=== PATIENT | female | born 1990 | race American Indian/Alaskan Native ===

== ENCOUNTER 2018-10-28 09:21 | Day surgery (SDC) | payer MEDICAID ==
--- NOTE | 2018-10-28 09:08 | Short Stay Summary ---
Short Stay Documentation Date of service: 10/28/18 Narrative H&P: Patient is a 28 year old who presents for D&C for incomplete . Patient had lingering hcg levels for more than 3 weeks therefore the decision was made to proceed with D&C. - History Past Medical History: No medical history Past Surgical History: No surgical history Social history: single - Allergies and Medications Current Medications: Allergies sulfamethoxazole [From Bactrim] Allergy (Verified 10/21/18 16:57) Itching trimethoprim [From Bactrim] Allergy (Verified 10/21/18 16:57) Itching Home Medications Medication Instructions Recorded Confirmed Last Taken Type No Known Home Medications [No 10/21/18 10/21/18 Unknown History Reported Home Medications] - Physical exam General appearance: no acute distress Integumentary: no rash, no growths HEENT: Atraumatic, PERRLA, EOMI Lungs: Clear to auscultation, Normal air movement Breasts: deferred Heart: Regular rate, Normal S1, Normal S2 Gastrointestinal: normal, normoactive bowel sounds Female Genitourinary: deferred Rectal Exam: deferred Extremities: No edema - Brief post op/procedure progress note Date of procedure: 10/28/18 Pre-op diagnosis: Incomplete Post-op diagnosis: same Procedure: D&E Anesthesia: GETA Findings: moderate amount of tissue present in uterus Surgeon: RAJI BRAGG Estimated blood loss: 50-100ml Pathology: list (products of conception) Condition: stable - Hospital course Hospital course: unremarkable - Disposition Condition at discharge: Good Disposition: DC-01 TO HOME OR SELFCARE Short Stay Discharge Plan Activity: advance as tolerated Weight Bearing Status: Weight Bear as Tolerated Diet: regular Wound: keep clean and dry Follow up with: RAJI BRAGG MD [Primary Care Provider] - 14 Days Prescriptions: HYDROcodone/ACETAMINOPHEN [[place] 5-325 Tablet] 1 each PO Q6H #15 tablet Ibuprofen [Motrin] 800 mg PO Q8HR PRN #30 tablet PRN Reason: Pain, Mild (1-3)
[~2018-10-28 09:21] MED LIST: LACTATED RINGERS 1,000 ML IV SCH
[2018-10-28] MEDS ORDERED: SUBLIMAZE IV PRN (10:06)
[2018-10-28] MEDS ORDERED: ZOFRAN IV PRN (10:06)
--- NOTE | 2018-10-28 10:06 | Anesthesia Day of Surgery ---
Anesthesia Day of Surgery - Day of Surgery Patient Examined: Yes Patient H&P Reviewed: Yes Patient is NPO: Yes
--- NOTE | 2018-10-28 10:06 | Anesthesia Consultation ---
Anesthesia Consult and Med Hx Date of service: 10/28/18 - Airway Anesthetic Teeth Evaluation: Chipped ROM Head & Neck: Adequate Mental/Hyoid Distance: Adequate Mallampati Class: Class I Intubation Access Assessment: Good - Pre-Operative Health Status ASA Pre-Surgery Classification: ASA2 Proposed Anesthetic Plan: General - Central Nervous System Hx Psychiatric Problems: No - Hematic Hx Sickle Cell Disease: Yes (Trait only; some SSA disease symptoms-leg pain when cold) - Other Systems Hx Alcohol Use: Yes (Occas) Hx Cancer: No
[2018-10-28] MEDS ORDERED: DIPRIVAN 10 MG/ML IV ONE (10:30)
[2018-10-28] MEDS ORDERED: SUBLIMAZE ONE ×2 (10:30)
[2018-10-28] MEDS ORDERED: ZEMURON IV ONE (10:34)
[2018-10-28] MEDS ORDERED: VERSED IV NR (11:00)
[2018-10-28] MEDS ORDERED: ROBINUL ONE (11:34)
[2018-10-28] MEDS ORDERED: NEO SYNEPHRINE/NS Syringe(OR USE) IV ONE (11:48)
[2018-10-28] MEDS ORDERED: SILVER NITRATE TP ONE ×2 (12:02→12:18)
[2018-10-28] MEDS ORDERED: NACL 0.9% IR ONE (12:18)
--- NOTE | 2018-10-28 12:25 | Operative Report ---
Operative Report Operative Report: Preoperative diagnoses: Incomplete Postoperative diagnosis: Same Procedure: D and E Surgeon: Fiordaliza Stevens M.D. Anesthesia: MAC EBL: Minimal Urine output: 300 mL clear Complications: None Specimens: Products of conception Procedure: Patient was taken to the OR with IV running and in place. She will probably identified as herself. She was given adequate anesthesia. She was then placed in the dorsal lithotomy position and prepped and draped in normal sterile fashion. Attention was turned to the patient's vagina. Her bladder was then drained of approximately 100 mL of clear yellow urine. A bivalve speculum was placed the patient's vagina. Cervix was visualized and grasped with a singl e-tooth tenaculum. The cervix was then gently dilated up to approximately 29 mm. Following this, a #7 suction curette was inserted into the patient's uterus at the level of the fundus. It was then attached to the suction machine and the curettage was performed removing products of conception. At one point the curet was removed and a large banjo curet was introduced into the uterus to further r etrieve any additional products. Following this the suction curette was reintroduced and more tissue was obtained. It was excellent hemostasis noted at the end of this portion of the procedure. At this point all instruments were removed from the patient's vagina. She was then awakened and taken to recovery in stable condition. She tolerated the procedure well
[2018-10-28] MEDS ORDERED: NORCO 5/325 PO ONE (13:30)
[2018-10-28 13:48] VITALS: BP 121/78
== END 2018-10-28 14:09 | disposition home or self-care (01) ==
LOC: OR 09:21
PROVIDERS: ATTEND Obstetrics & Gynecology
DX: O03.4 Incomplete spontaneous abortion without complication (principal); O02.0 Blighted ovum and nonhydatidiform mole; Z88.8 Allergy status to other drugs, medicaments and biological substances; Z79.899 Other long term (current) drug therapy; Z72.89 Other problems related to lifestyle; Z98.890 Other specified postprocedural states
CPT/HCPCS: 59812; 86900; 86901; 88305; J2250; J2370; J2704; J3010; J7120

== ENCOUNTER 2019-03-22 17:29 | Emergency (ER) | payer MEDICAID ==
--- NOTE | 2019-03-22 17:44 | Event Note ---
ED Screening Note Date of service: 03/22/19 Time: 17:39 ED Screening Note: 28 y/o female comes in for vaginal bleeding. Had miscarriage in Aug. D/C in September and got preg January 2019. This initial assessment/diagnostic orders/clinical plan/treatment(s) is/are subject to change based on patients health status, clinical progression and re- assessment by fellow clinical providers in the ED. Further treatment and workup at subsequent clinical providers discretion. Patient/guardian urged not to elope from the ED as their condition may be serious if not clinically assessed and managed. Initial orders include:
[2019-03-22 17:50] VITALS: BP 148/78
[2019-03-22 18:18] LABS: Basophils # (Auto) 0.1 K/mm3 (0.0-0.1); Basophils % (Auto) 0.7 % (0.0-1.8); Eosinophils # (Auto) 0.3 K/mm3 (0.0-0.4); Eosinophils % (Auto) 2.9 % (0.0-4.3); Hematocrit 37.7 % (30.3-42.9); Hemoglobin 12.9 gm/dl (10.1-14.3); Lymphocytes # (Auto) 3.5 K/mm3 (1.2-5.4); Lymphocytes % (Auto) 34.4 % (13.4-35.0); Mean Corpuscular HGB Conc 34 % (30-34); Mean Corpuscular Volume 88 fl (79-97); Monocytes # (Auto) 0.7 K/mm3 (0.0-0.8); Monocytes % (Auto) 7.3 % (0.0-7.3); Platelet Count 252 K/mm3 (140-440); Red Blood Count 4.28 M/mm3 (3.65-5.03); Red Cell Distribution Width 14.9 % (13.2-15.2)
[2019-03-22 18:30] LABS: Bilirubin,Urine NEG (Negative); Blood,Urine MOD (Negative); Color,Urine Straw (Yellow); Mucus,Urine FEW /HPF; Protein,Urine <15 mg/dL mg/dL (Negative); Urobilinogen,Urine < 2.0 mg/dL (<2.0); WBC,Urine < 1.0 /HPF (0.0-6.0)
--- NOTE | 2019-03-22 22:01 | Ultrasound Report ---
PROCEDURE: US OB <= 14 WEEKS FETUS TECHNIQUE: Ultrasound obstetrical transabdominal HISTORY: preg with vag bleeding COMPARISONS: FINDINGS: There is small amount of fluid with a somewhat saclike appearance seen within the endometrium. Some i nternal echoes are seen. No pole or yolk sac identified. No myometrial abnormality seen Right ovary is 1.8 x 1.4 x 2.4 cm. Left ovary is 2.5 x 1.4 x 2.3 cm. Ovaries demonstrate normal sonog raphic appearance IMPRESSION: Some fluid and a small saclike structure seen centrally within the uterus which contains some mobile echogenic material. There is concern for spontaneous AB. Very early RUP cannot be occluded. Continued follow-up recommended. This document is electronically signed by Mitch Eisenberg MD., March 22 2019 09:59:56 PM ET
--- NOTE | 2019-03-22 22:10 | Emergency Department Report ---
ED HPI - General Chief complaint: Vaginal Bleeding Stated complaint: VAG BLEED Time Seen by Provider: 03/22/19 21:03 Source: patient Mode of arrival: Ambulatory Limitations: No Limitations - History of Present Illness Initial comments: Patient is a 28-year-old female who presents emergency Department with complaints of vaginal spotting that began last night. She denies any abdominal pain. She does not report any vomiting, diarrhea, fever, urinary symptoms, vaginal discharge. She states she feels like she has constipated but had a bowel movement today. She states she has been eating a lot more and feels like she hasn't had enough of a bowel movement. Her last menstrual period was February 06. she states he took at home test which was positive. She states based on her last menstrual period she is 6 weeks . She states she has an appointment with Dr. Stevens [facility] at [facility] but they will not see her until 8 weeks. She has not been taking a vitamin. She states that in August she had a miscarriage and had a D&C on October 26. She denies any past medical history she states she has an allergy to Bactrim. - Related Data Previous Rx's Medication Instructions Recorded Last Taken Type HYDROcodone/ACETAMINOPHEN [[place] 1 each PO Q6H #15 tablet 10/28/18 Unknown Rx 5-325 Tablet] Ibuprofen [Motrin] 800 mg PO Q8HR PRN #30 tablet 10/28/18 Unknown Rx Allergies Allergy/AdvReac Type Severity Reaction Status Date / Time sulfamethoxazole Allergy Itching Verified 03/22/19 17:30 [From Bactrim] trimethoprim [From Bactrim] Allergy Itching Verified 03/22/19 17:30 ED Review of Systems ROS: Stated complaint: VAG BLEED Other details as noted in HPI Comment: All other systems reviewed and negative ED Past Medical Hx - Past Medical History Previous Medical History?: Yes Hx Sickle Cell Disease: Yes (Trait only; some SSA disease symptoms-leg pain when cold) - Surgical History Past Surgical History?: Yes Additional Surgical History: D&C - Social History Smoking Status: Never Smoker Substance Use Type: None - Medications Home Medications: Home Medications Medication Instructions Recorded Confirmed Last Taken Type HYDROcodone/ACETAMINOPHEN [[place] 1 each PO Q6H #15 tablet 10/28/18 Unknown Rx 5-325 Tablet] Ibuprofen [Motrin] 800 mg PO Q8HR PRN #30 tablet 10/28/18 Unknown Rx ED Physical Exam - General Limitations: No Limitations General appearance: alert, in no apparent distress - Head Head exam: Present: atraumatic, normocephalic - Eye Eye exam: Present: normal appearance, PERRL - ENT ENT exam: Present: mucous membranes moist - Respiratory Respiratory exam: Present: normal lung sounds bilaterally. Absent: respiratory distress, wheezes, rales, rhonchi, stridor, chest wall tenderness, accessory mu scle use, decreased breath sounds, prolonged expiratory - Cardiovascular Cardiovascular Exam: Present: regular rate, normal rhythm, normal heart sounds. Absent: systolic murmur, diastolic murmur, rubs, gallop - GI/Abdominal GI/Abdominal exam: Present: soft, normal bowel sounds. Absent: distended, tenderness, guarding, rebound, rigid - Back Exam Back exam: Absent: CVA tenderness (R), CVA tenderness (L) - Neurological Exam Neurological exam: Present: alert, oriented X3 - Psychiatric Psychiatric exam: Present: normal affect, normal mood - Skin Skin exam: Present: warm, dry, intact ED Course Vital Signs 03/22/19 03/22/19 17:48 23:00 Temperature 98.1 F Pulse Rate 96 H 87 Respiratory 16 16 Rate Blood Pressure 148/78 O2 Sat by Pulse 99 97 Oximetry ED Medical Decision Making - Lab Data Result diagrams: 03/22/19 17:50 Lab Results 03/22/19 03/22/19 03/22/19 Range/Units 17:50 17:50 17:50 WBC 10.2 (4.5-11.0) K/mm3 RBC 4.28 (3.65-5.03) M/mm3 Hgb 12.9 (10.1-14.3) gm/dl Hct 37.7 (30.3-42.9) % MCV 88 (79-97) fl MCH 30 (28-32) pg MCHC 34 (30-34) % RDW 14.9 (13.2-15.2) % Plt Count 252 (140-440) K/mm3 Lymph % (Auto) 34.4 (13.4-35.0) % [place] % (Auto) 7.3 (0.0-7.3) % Eos % (Auto) 2.9 (0.0-4.3) % Baso % (Auto) 0.7 (0.0-1.8) % Lymph # 3.5 (1.2-5.4) K/mm3 [place] # 0.7 (0.0-0.8) K/mm3 Eos # 0.3 (0.0-0.4) K/mm3 Baso # 0.1 (0.0-0.1) K/mm3 Seg Neutrophils % 54.7 (40.0-70.0) % Seg Neutrophils # 5.6 (1.8-7.7) K/mm3 HCG, Quant 1523 H (0-4) mIU/mL Urine Color (Yellow) Urine Turbidity (Clear) Urine pH (5.0-7.0) Ur Specific [place] (1.003-1.030) Urine Protein (Negative) mg/dL Urine Glucose (UA) (Negative) mg/dL Urine Ketones (Negative) mg/dL Urine Blood (Negative) Urine Nitrite (Negative) Urine Bilirubin (Negative) Urine Urobilinogen (<2.0) mg/dL Ur Leukocyte Esterase (Negative) Urine WBC (Auto) (0.0-6.0) /HPF Urine RBC (Auto) (0.0-6.0) /HPF U Epithel Cells (Auto) (0-13.0) /HPF Urine Mucus /HPF Blood Type AB POSITIVE 03/22/19 Range/Units 18:00 WBC (4.5-11.0) K/mm3 RBC (3.65-5.03) M/mm3 Hgb (10.1-14.3) gm/dl Hct (30.3-42.9) % MCV (79-97) fl MCH (28-32) pg MCHC (30-34) % RDW (13.2-15.2) % Plt Count (140-440) K/mm3 Lymph % (Auto) (13.4-35.0) % [place] % (Auto) (0.0-7.3) % Eos % (Auto) (0.0-4.3) % Baso % (Auto) (0.0-1.8) % Lymph # (1.2-5.4) K/mm3 [place] # (0.0-0.8) K/mm3 Eos # (0.0-0.4) K/mm3 Baso # (0.0-0.1) K/mm3 Seg Neutrophils % (40.0-70.0) % Seg Neutrophils # (1.8-7.7) K/mm3 HCG, Quant (0-4) mIU/mL Urine Color Straw (Yellow) Urine Turbidity Clear (Clear) Urine pH 6.0 (5.0-7.0) Ur Specific [place] 1.008 (1.003-1.030) Urine Protein <15 mg/dl (Negative) mg/dL Urine Glucose (UA) Neg (Negative) mg/dL Urine Ketones Neg (Negative) mg/dL Urine Blood Mod (Negative) Urine Nitrite Neg (Negative) Urine Bilirubin Neg (Negative) Urine Urobilinogen < 2.0 (<2.0) mg/dL Ur Leukocyte Esterase Tr (Negative) Urine WBC (Auto) < 1.0 (0.0-6.0) /HPF Urine RBC (Auto) 1.0 (0.0-6.0) /HPF U Epithel Cells (Auto) 2.0 (0-13.0) /HPF Urine Mucus Few /HPF Blood Type - Radiology Data Radiology results: report reviewed PROCEDURE: US OB TRANSVAGINAL TECHNIQUE: HISTORY: preg with vag bleeding COMPARISONS: FINDINGS: There is small amount of fluid with a somewhat saclike appearance seen within the endometrium. Some internal echoes are seen. No pole or yolk sac identified. This is better seen on the transvaginal study No myometrial abnormality seen Right ovary is 1.8 x 1.4 x 2.4 cm. Left ovary is 2.5 x 1.4 x 2.3 cm. Ovaries demonstrate normal sonographic appearance IMPRESSION: Some fluid and a small saclike structure seen centrally within the uterus which contains some mobile echogenic material. There is concern for spontaneous AB. Very early RUP cannot be occluded. Continued follow-up recommended. IMPRESSION: Mobile fluid with the elongated somewhat thickened endometrium. No pole identified. Findings are highly concerning for spontaneous AB with some blood within the endometrial canal This document is electronically signed by Mitch Jovel MD., March 22 2019 10:19:38 PM ET Transcribed By: CECY Dictated By: LAWRENCE JOVEL MD Electronically Authenticated By: LAWRENCE JOVEL MD Signed Date/Time: 03/22/191 - Medical Decision Making Patient is a 28-year-old female who presents emergency Department with complaints of vaginal spotting that began last night. She denies any abdominal pain. She does not report any vomiting, diarrhea, fever, urinary symptoms, vaginal discharge. She states she feels like she has constipated but had a bowel movement today. She states she has been eating a lot more and feels like she hasn't had enough of a bowel movement. Her last menstrual period was February 06. she states he took at home test which was positive. She states based on her last menstrual period she is 6 weeks . She states she has an appointment with Dr. Stevens [facility] but they will not see her until 8 weeks. She has not been taking a vitamin. She states that in August she had a miscarriage and had a D&C on October 26. She denies any past medical history she states she has an allergy to Bactrim. vitals are stable. labs WNL, UA is normal, hcg quant is 1523. no abd tenderness on exam. US shows Mobile fluid with the elongated somewhat thickened endometrium. No pole identified. Findings are highly concerning for spontaneous AB with some blood within the endometrial canal. Very early RUP cannot be occluded. Continued follow-up recommended. discussed US results with pt. advised pt she will need to have a repeat hCG Quant in 2 days. Please follow-up with [facility] [employer] [facility] in the next 2-3 days. Return to the emergency room for any new or worsening symptoms. - Differential Diagnosis IUP, spontaenous , threatened , ovarian cyst Critical care attestation.: If time is entered above; I have spent that time in minutes in the direct care of this critically ill patient, excluding procedure time. ED Disposition Clinical Impression: Threatened Disposition: DC-01 TO HOME OR SELFCARE Is pt being admited?: No Does the pt Need Aspirin: No Condition: Stable Instructions: Threatened Miscarriage (ED) Additional Instructions: hcg quant today is 1523. Will need to have a repeat hCG Quant in 2 days. Please follow-up with [facility] [employer] [facility] in the next 2-3 days. Return to the emergency room for any new or worsening symptoms. Referrals: RAJI STEVENS MD [Primary Care Provider] - 2-3 Days [facility] [Provider Group] - 2-3 Days [facility] [Provider Group] - 2-3 Days Time of Disposition: 22:42 Print Language: PORTUGUESE
--- NOTE | 2019-03-22 22:21 | Ultrasound Report ---
PROCEDURE: US OB TRANSVAGINAL TECHNIQUE: HISTORY: preg with vag bleeding COMPARISONS: FINDINGS: There is small amount of fluid with a somewhat saclike appearance seen within the endometrium. Some i nternal echoes are seen. No pole or yolk sac identified. This is better seen on the transvagina l study No myometrial abnormality seen Right ovary is 1.8 x 1.4 x 2.4 cm. Left ovary is 2.5 x 1.4 x 2.3 cm. Ovaries demonstrate normal sonog raphic appearance IMPRESSION: Some fluid and a small saclike structure seen centrally within the uterus which contains some mobile echogenic material. There is concern for spontaneous AB. Very early RUP cannot be occluded. Continued follow-up recommended. IMPRESSION: Mobile fluid with the elongated somewhat thickened endometrium. No pole identified. Findings ar e highly concerning for spontaneous AB with some blood within the endometrial canal This document is electronically signed by Mitch Eisenberg MD., March 22 2019 10:19:38 PM ET
== END 2019-03-22 23:00 | disposition home or self-care (01) ==
LOC: ED 17:29
DX: O20.0 Threatened abortion (principal); Z3A.01 Less than 8 weeks gestation of pregnancy; Z79.899 Other long term (current) drug therapy; Z88.1 Allergy status to other antibiotic agents; Z88.2 Allergy status to sulfonamides
CPT/HCPCS: 36415; 76801; 76817; 81001; 84702; 85025; 86900; 86901; 99284

== ENCOUNTER 2019-05-05 15:03 | Emergency (ER) | payer MEDICAID ==
--- NOTE | 2019-05-05 15:16 | Emergency Department Report ---
Blank Doc - Documentation Documentation: This is a 28-year-old female that presents with vaginal bleeding. Stated is a bout 12 weeks . This initial assessment/diagnostic orders/clinical plan/treatment(s) is/are subject to change based on patient's health status, clinical progression and re- assessment by fellow clinical providers in the ED. Further treatment and workup at subsequent clinical providers discretion. Patient/guardians urged not to elope from the ED as their condition may be serious if not clinically assessed and managed. Initial orders include: 1- Patient sent to [facility] for further evaluation and treatment 2- labs 3- UA
[2019-05-05 15:18] VITALS: BP 122/80
[2019-05-05 16:12] LABS: Basophils # (Auto) 0.1 K/mm3 (0.0-0.1); Basophils % (Auto) 0.8 % (0.0-1.8); Eosinophils # (Auto) 0.3 K/mm3 (0.0-0.4); Eosinophils % (Auto) 4.4 % (0.0-4.3); Hematocrit 40.5 % (30.3-42.9); Hemoglobin 13.4 gm/dl (10.1-14.3); Lymphocytes # (Auto) 2.4 K/mm3 (1.2-5.4); Mean Corpuscular HGB Conc 33 % (30-34); Mean Corpuscular Volume 90 fl (79-97); Monocytes # (Auto) 0.5 K/mm3 (0.0-0.8); Monocytes % (Auto) 6.9 % (0.0-7.3); Platelet Count 219 K/mm3 (140-440); Red Blood Count 4.53 M/mm3 (3.65-5.03); Red Cell Distribution Width 14.8 % (13.2-15.2)
[2019-05-05 17:41] LABS: Bilirubin,Urine NEG (Negative); Blood,Urine LG (Negative); Mucus,Urine FEW /HPF; Urobilinogen,Urine < 2.0 mg/dL (<2.0)
[2019-05-05 17:43] LABS: Color,Urine Yellow (Yellow)
--- NOTE | 2019-05-05 19:41 | Emergency Department Report ---
ED Female HPI - General Chief complaint: Vaginal Bleeding Stated complaint: 12 WEEKS /BLEEDING Time Seen by Provider: 05/05/19 15:15 Source: patient Mode of arrival: Ambulatory Limitations: No Limitations - History of Present Illness Initial comments: This is a 28-year-old female that presents with vaginal bleeding. Stated is about 12 weeks . Complaint: vaginal bleeding Onset/Timin -: days(s) Radiation: non-radiating Severity: mild Severity scale (0 -10): 2 Quality: cramping Consistency: constant Improves with: none Worsens with: none Are you Now?: Yes Last Menstrual Period: 03/08/19 EDC: 12/13/19 Associated Symptoms: vaginal bleeding - Related Data Sexually active: Yes : 2 Para: 1 A: 1 (miscarriage 08/2018) Previous Rx's Medication Instructions Recorded Last Taken Type HYDROcodone/ACETAMINOPHEN [[place] 1 each PO Q6H #15 tablet 10/28/18 Unknown Rx 5-325 Tablet] Ibuprofen [Motrin] 800 mg PO Q8HR PRN #30 tablet 10/28/18 Unknown Rx traMADol [Ultram] 50 mg PO Q6HR PRN #12 tablet 05/05/19 Unknown Rx Allergies Allergy/AdvReac Type Severity Reaction Status Date / Time sulfamethoxazole Allergy Itching Verified 03/22/19 17:30 [From Bactrim] trimethoprim [From Bactrim] Allergy Itching Verified 03/22/19 17:30 ED Review of Systems ROS: Stated complaint: 12 WEEKS /BLEEDING Other details as noted in HPI Constitutional: denies: chills, fever Eyes: denies: eye pain, eye discharge, vision change ENT: denies: ear pain, throat pain Respiratory: denies: cough, shortness of breath, wheezing Cardiovascular: denies: chest pain, palpitations Endocrine: no symptoms reported Gastrointestinal: abdominal pain. denies: nausea, vomiting, diarrhea Genitourinary: other (vaginal spotting ). denies: urgency, dysuria, frequency, hematuria, discharge Musculoskeletal: denies: back pain, joint swelling, arthralgia Skin: denies: rash, lesions Neurological: denies: headache, weakness, paresthesias Psychiatric: denies: anxiety, depression Hematological/Lymphatic: denies: easy bleeding, easy bruising ED Past Medical Hx - Past Medical History Previous Medical History?: No Hx Sickle Cell Disease: Yes (Trait only; some SSA disease symptoms-leg pain when cold) - Surgical History Past Surgical History?: Yes Additional Surgical History: D&C - Social History Smoking Status: Never Smoker Substance Use Type: None - Medications Home Medications: Home Medications Medication Instructions Recorded Confirmed Last Taken Type HYDROcodone/ACETAMINOPHEN [[place] 1 each PO Q6H #15 tablet 10/28/18 Unknown Rx 5-325 Tablet] Ibuprofen [Motrin] 800 mg PO Q8HR PRN #30 tablet 10/28/18 Unknown Rx traMADol [Ultram] 50 mg PO Q6HR PRN #12 tablet 05/05/19 Unknown Rx ED Physical Exam - General Limitations: No Limitations General appearance: alert, in no apparent distress - Head Head exam: Present: atraumatic, normocephalic - Eye Eye exam: Present: normal appearance, PERRL, EOMI Pupils: Present: normal accommodation - ENT ENT exam: Present: normal orophraynx, mucous membranes moist, TM's normal bilaterally, normal external ear exam - Neck Neck exam: Present: normal inspection, full ROM. Absent: tenderness, meningismus, lymphadenopathy, thyromegaly - Expanded Neck Exam Expanded Neck exam: Absent: tenderness - Respiratory Respiratory exam: Present: normal lung sounds bilaterally. Absent: respiratory distress, wheezes, rales, rhonchi, stridor, chest wall tenderness - Cardiovascular Cardiovascular Exam: Present: regular rate, normal rhythm, normal heart sounds. Absent: systolic murmur, diastolic murmur, rubs, gallop - GI/Abdominal GI/Abdominal exam: Present: soft, normal bowel sounds. Absent: distended, tenderness, guarding, rebound, rigid, bruit, hernia - Rectal Rectal exam: Present: deferred - External exam: Present: other (exam deferred by patient ) - Extremities Exam Extremities exam: Present: normal inspection - Back Exam Back exam: Present: normal inspection, full ROM. Absent: tenderness, CVA tenderness (R), CVA tenderness (L), muscle spasm, paraspinal tenderness, vertebral tenderness, rash noted - Neurological Exam Neurological exam: Present: alert, oriented X3, CN II-XII intact, normal gait, reflexes normal. Absent: motor sensory deficit - Psychiatric Psychiatric exam: Present: normal affect, normal mood - Skin Skin exam: Present: warm, normal color. Absent: dry, intact ED Course Vital Signs 05/05/19 15:17 Temperature 97.8 F Pulse Rate 91 H Respiratory 18 Rate Blood Pressure 122/80 O2 Sat by Pulse 100 Oximetry ED Medical Decision Making - Lab Data Result diagrams: 05/05/19 15:53 Lab Results 05/05/19 05/05/19 05/05/19 Range/Units 15:53 15:53 16:34 WBC 7.0 (4.5-11.0) K/mm3 RBC 4.53 (3.65-5.03) M/mm3 Hgb 13.4 (10.1-14.3) gm/dl Hct 40.5 (30.3-42.9) % MCV 90 (79-97) fl MCH 30 (28-32) pg MCHC 33 (30-34) % RDW 14.8 (13.2-15.2) % Plt Count 219 (140-440) K/mm3 Lymph % (Auto) 34.0 (13.4-35.0) % [place] % (Auto) 6.9 (0.0-7.3) % Eos % (Auto) 4.4 H (0.0-4.3) % Baso % (Auto) 0.8 (0.0-1.8) % Lymph # 2.4 (1.2-5.4) K/mm3 [place] # 0.5 (0.0-0.8) K/mm3 Eos # 0.3 (0.0-0.4) K/mm3 Baso # 0.1 (0.0-0.1) K/mm3 Seg Neutrophils % 53.9 (40.0-70.0) % Seg Neutrophils # 3.8 (1.8-7.7) K/mm3 HCG, Quant < 2 (0-4) mIU/mL Urine Color Yellow (Yellow) Urine Turbidity Clear (Clear) Urine pH 7.0 (5.0-7.0) Ur Specific [place] 1.003 (1.003-1.030) Urine Protein 30 mg/dl (Negative) mg/dL Urine Glucose (UA) Neg (Negative) mg/dL Urine Ketones Tr (Negative) mg/dL Urine Blood Lg (Negative) Urine Nitrite Neg (Negative) Urine Bilirubin Neg (Negative) Urine Urobilinogen < 2.0 (<2.0) mg/dL Ur Leukocyte Esterase Neg (Negative) Urine WBC (Auto) 1.0 (0.0-6.0) /HPF Urine RBC (Auto) 5.0 (0.0-6.0) /HPF U Epithel Cells (Auto) 1.0 (0-13.0) /HPF Urine Mucus Few /HPF - Radiology Data Radiology results: report reviewed, image reviewed Ordering Physician: MICHAELA WATSON Date of Service: 03/22/19 Procedure(s): US OB transvaginal Accession Number(s): [id number] cc: MICHAELA WATSON PROCEDURE: US OB TRANSVAGINAL TECHNIQUE: HISTORY: preg with vag bleeding COMPARISONS: FINDINGS: There is small amount of fluid with a somewhat saclike appearance seen within the endometrium. Some internal echoes are seen. No pole or yolk sac identified. This is better seen on the transvaginal study No myometrial abnormality seen Right ovary is 1.8 x 1.4 x 2.4 cm. Left ovary is 2.5 x 1.4 x 2.3 cm. Ovaries demonstrate normal sonographic appearance IMPRESSION: Some fluid and a small saclike structure seen centrally within the uterus which contains some mobile echogenic material. There is concern for spontaneous AB. Very early RUP cannot be occluded. Continued follow-up recommended. IMPRESSION: Mobile fluid with the elongated somewhat thickened endometrium. No pole identified. Findings are highly concerning for spontaneous AB with some blood within the endometrial canal This document is electronically signed by Mitch Jovel MD., March 22 2019 10:19:38 PM ET Transcribed By: [facility] Dictated By: LAWRENCE JOVEL MD Electronically Authenticated By: LAWRENCE JOVEL MD Signed Date/Time: 03/22/192220 DD/ 19 TD/TT: 03/22/192020 - Medical Decision Making US OB from 02/2019 does not confirm , this is likely miscarriage versus normal menses there is no fever no chills no n/v no vaginal discharge no pelvic pain , h/h is normal, will follow up with OBGYN in 2-3 , Critical care attestation.: If time is entered above; I have spent that time in minutes in the direct care of this critically ill patient, excluding procedure time. ED Disposition Clinical Impression: Abnormal uterine bleeding (AUB) Disposition: - TO HOME OR SELFCARE Is pt being admited?: No Does the pt Need Aspirin: No Condition: Stable Instructions: Dysmenorrhea (ED) Prescriptions: traMADol [Ultram] 50 mg PO Q6HR PRN #12 tablet PRN Reason: Pain Referrals: RAJI BRAGG MD [Primary Care Provider] - 3-5 Days Forms: Work/School Release Form(ED) Time of Disposition: 19:42
== END 2019-05-05 19:55 | disposition home or self-care (01) ==
LOC: ED 15:03
DX: O20.8 Other hemorrhage in early pregnancy (principal); Z79.899 Other long term (current) drug therapy; Z88.2 Allergy status to sulfonamides; Z88.8 Allergy status to other drugs, medicaments and biological substances; Z3A.12 12 weeks gestation of pregnancy
CPT/HCPCS: 36415; 81001; 84702; 85025

== ENCOUNTER 2020-05-11 11:47 | Inpatient (IN) | payer MEDICAID ==
[2020-05-11] MEDS ORDERED: TERBUTALINE 1 MG/1 ML INJ IVP PRN (13:04)
[2020-05-11] MEDS ORDERED: ePHEDrine SULFATE 50 MG/1 ML INJ IV PRN (13:04)
[2020-05-11] MEDS ORDERED: LIDOCAINE (2%) 20 MG/1 ML VIAL 20 ML MDV INFILTRATI ONE (13:04)
[2020-05-11] MEDS ORDERED: MINERAL OIL 30 ML ORAL LIQD PO PRN (13:04)
[2020-05-11] MEDS ORDERED: fentaNYL 100 MCG/2 ML INJ IV PRN (13:04)
[2020-05-11] MEDS ORDERED: NalbUPHINE 10 MG/1 ML INJ IV PRN (13:04)
[2020-05-11] MEDS ORDERED: LACTATED RINGERS 1,000 ML IV SCH (14:00)
--- NOTE | 2020-05-11 14:07 | History and Physical Report ---
History of Present Illness Date of examination: 05/11/20 Date of admission: 05/11/20 11:48 Chief complaint: Active labor at term History of present illness: 29yo, @ 38.1 wks, initiated care at 12.5 wks gestation. 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 Sent to [facility] from office with cervical exam of /-2. She reports +FM, denies VB or LOF. Labs: AB+, antibody negative; PAP smear normal; rubella immune; VDRL non-reactive; HBsAg negative; HIV negative; GC/Chlamydia negative; Trich positive; Hgb A1c - 5.2; Vit D 14.6; HSV positive; 1 hr gtt - 102; GBS negative. 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 denies: smoking, alcohol abuse, prescription drug abuse, IV drug use - Obstetrical History Expected Date of Delivery: 05/24/20 Actual Gestation: 38 Week(s) 1 Day(s) : 3 Para: 1 Hx # Term Pregnancies: 1 Number of Pregnancies: 0 Spontaneous Abortions: 1 Induced : 0 Number of Living Children: 1 #1 Infant Gender: Male year: 2,[birth year] Method of Delivery: Vaginal Gestational age at delivery: 38 Complications: none Medications and Allergies Allergies Allergy/AdvReac Type Severity Reaction Status Date / Time sulfamethoxazole Allergy Itching Verified 03/22/19 17:30 [From Bactrim] trimethoprim [From Bactrim] Allergy Itching Verified 03/22/19 17:30 Home Medications Medication Instructions Recorded Confirmed Last Taken Type Vitamin 1 tab PO DAILY 05/11/20 05/11/20 1 Week Ago History ~05/04/20 Active Meds: Active Medications Ephedrine Sulfate (Ephedrine Sulfate) 10 mg IV Q2M PRN PRN Reason: Hypotension Fentanyl (Sublimaze) 100 mcg IV Q2H PRN PRN Reason: Pain,Severe (7-10) LABOR PAIN Oxytocin/Sodium Chloride (Pitocin/Ns 20 Unit/1000ml Drip) 20 units in 1,000 mls @ 125 mls/hr IV DIRECT IGNACIO Lactated Ringer's (Lactated Ringers) 1,000 mls @ 125 mls/hr IV DIRECT IGNACIO Mineral Oil (Mineral Oil) 30 ml PO QHS PRN PRN Reason: Constipation Nalbuphine HCl (Nalbuphine) 10 mg IV Q2H PRN PRN Reason: Pain, Moderate (4-6) Terbutaline Sulfate (Brethine) 0.25 mg IVP ONCE PRN PRN Reason: Hyperstimulation/Hypertonicity Review of Systems All systems: negative Genitourinary: contractions - Vital Signs Vital signs: Vital Signs Pulse BP 113 H 117/70 05/11/20 12:18 05/11/20 12:18 Temp Pulse Resp BP Pulse Ox 97.8 F 98 H 18 117/70 98 05/11/20 12:50 05/11/20 13:56 05/11/20 12:50 05/11/20 12:18 05/11/20 13:56 - Physical Exam Breasts: Positive: normal Cardiovascular: Regular rate Lungs: Positive: Normal air movement Uterus: Positive: enlarged Extremities: Positive: normal Deep Tendon Reflex Grade: Normal +2 - Obstetrical FHR: category 1 Uterine Contraction Monitor Mode: External Cervical Dilatation: 8 (vertex) Cervical Effacement Percentage: 80 station: -2 Uterine Contraction Duration: 4-6 Uterine Contraction Pattern: Irregular Uterine Tone Measurement Phase: Resting Uterine Contraction Intensity: Moderate Results Result Diagrams: 05/11/20 13:46 All other labs normal. Assessment and Plan - Patient Problems (1) Active labor at term Current Visit: Yes Status: Acute Plan to address problem: Admit to L & D AROM at 1549, clear fluids tolerated well Pain meds as desired Anticipate (2) HSV-2 seropositive Current Visit: Yes Status: Acute (3) Sickle cell trait Current Visit: Yes Status: Acute (4) Maternal obesity affecting , antepartum Current Visit: Yes Status: Acute
[2020-05-11 14:09] LABS: Hematocrit 33.9 % (30.3-42.9); Hemoglobin 11.8 gm/dl (10.1-14.3); Mean Corpuscular HGB Conc 35 % (30-34); Mean Corpuscular Volume 83 fl (79-97); Platelet Count 211 K/mm3 (140-440); Red Blood Count 4.11 M/mm3 (3.65-5.03); Red Cell Distribution Width 15.7 % (13.2-15.2)
[2020-05-11] MEDS ORDERED: OXYTOCIN DRIP 30 UNITS/500 ML BAG IV SCH ×2 (15:00→19:00)
[2020-05-11] MEDS: OXYTOCIN 20 UNIT/1000ML DRIP 20 UNITS/1,000 ML BAG IV SCH ×2 (22:30→23:16)
[2020-05-11] MEDS ORDERED: PROMETHAZINE 25 MG RECT SUPP PR PRN (22:48)
[2020-05-11] MEDS ORDERED: MAGNESIUM HYDROXIDE (MOM) ORAL LIQD UDC PO PRN (22:48)
[2020-05-11] MEDS ORDERED: ACETAMINOPHEN 325 MG TAB PO PRN (22:48)
[2020-05-11] MEDS ORDERED: PROMETHAZINE 25 MG TAB PO PRN (22:48)
[2020-05-11] MEDS ORDERED: ONDANSETRON 4 MG/2 ML INJ IV PRN (22:48)
[2020-05-11] MEDS ORDERED: diphenhydrAMINE 25 MG CAP PO PRN (22:48)
[2020-05-11] MEDS ORDERED: LANOLIN/ZINC/DIMETHICONE (LANSINOH) 7 GM TP PRN (22:48)
[2020-05-11] MEDS ORDERED: WITCH HAZEL/ GLYCERIN PAD TP PRN (22:48)
--- NOTE | 2020-05-11 22:58 | Procedure Note ---
OB Delivery Note - Vaginal Delivery presentation: vertex Delivery position: OA Delivery induction: none Delivery augmentation: rupture of membranes, pitocin Delivery monitor: external FHT, external uterine Route of delivery: Delivery placenta: spontaneous Delivery cord: nuchal cord, 3 umbilical vessels Episiotomy: none Delivery laceration: none Anesthesia: local Delivery comments: Called to for delivery. SVE 10/100/+1 and pt was pushing. of a viable live female in OA position with a body nuchal cord. Head and shoulders delivered spontaneously. Infant placed on mom's chest/abd for initial bonding. Delayed cord clamping x 90 sec then cord was clamped x 2 and FOB was allowed to cut the cord. Infant was given to the awaiting NICU for an asses. Spontaneous delivery of an intact placenta with CVX3. FF @ U1 with IV Pitocin and fundal massage. Exploration of tears revealed none. EBL 50cc Mom and baby stable. - Infant A at 1 minute: 8 at 5 minutes: 9 Gender: Female ( wt 2946 gms)
[2020-05-12] MEDS: IBUPROFEN 600 MG TAB PO SCH ×5 (01:56→22:45)
[2020-05-12] MEDS ORDERED: PRENATAL VIT27-FE FUMARATE-FOLIC ACID VIT TAB PO SCH (10:00)
--- NOTE | 2020-05-12 11:12 | Progress Note ---
Assessment and Plan A: vss/Afebrile P: Continue montoring D/C in am if stable Subjective - Subjective Date of service: 05/12/20 Principal diagnosis: Patient reports: appetite normal, voiding normally, pain well controlled, ambul ating normally : doing well Objective - Vital Signs Latest vital signs: Vital Signs Temp Pulse Resp BP BP Pulse Ox 05/12/20 07:56 98.0 F 92 H 18 95/66 97 05/12/20 06:25 18 05/12/20 05:25 18 05/12/20 05:00 98.5 F 98 H 20 111/65 99 05/12/20 01:56 18 05/12/20 00:20 98.1 F 93 H 18 102/55 98 05/12/20 00:01 99.1 F 05/11/20 23:46 93 H 99 05/11/20 23:41 89 99 05/11/20 23:36 93 H 100 05/11/20 23:31 91 H 100 05/11/20 23:26 100 H 99 05/11/20 23:21 91 H 99 05/11/20 23:16 96 H 100 05/11/20 23:11 100 H 100 05/11/20 23:06 99 H 100 05/11/20 23:01 102 H 100 05/11/20 22:56 102 H 100 05/11/20 22:51 101 H 100 05/11/20 22:46 98 H 99 05/11/20 22:41 104 H 99 05/11/20 22:36 94 H 100 05/11/20 22:31 92 H 100 05/11/20 22:26 99 H 99 05/11/20 22:21 63 88 05/11/20 22:16 102 H 99 05/11/20 22:11 103 H 97 05/11/20 22:06 95 H 99 05/11/20 22:01 102 H 99 05/11/20 21:56 108 H 98 05/11/20 21:51 113 H 96 05/11/20 21:46 91 H 100 05/11/20 21:44 96 H 94 05/11/20 21:41 89 99 05/11/20 21:08 99 H 97 05/11/20 21:03 105 H 99 05/11/20 20:58 106 H 99 08/13/20 20:53 112 H 98 0813/20 20:48 106 H 96 0813/20 20:43 111 H 96 08/20 20:38 103 H 95 08/20 20:35 99 H 94 0813/20 20:33 97 H 96 0813/20 20:28 109 H 98 0813/20 20:23 93 H 99 0813/20 20:18 101 H 97 0813/20 20:13 88 98 0813/20 20:08 90 97 0813/20 20:03 92 H 97 08/20 19:58 91 H 97 08/20 19:53 84 97 08/20 19:48 95 H 99 08/20 19:43 99 H 98 0820 19:38 97 H 98 0820 19:33 100 H 98 08/20 19:28 90 97 08/20 19:23 90 97 08/20 19:18 94 H 97 20 19:13 95 H 97 0820 19:10 101 H 117/61 08/20 19:09 98.3 F 103 H 16 117/61 97 05/11/20 19:08 94 H 97 20 19:03 92 H 98 20 18:58 102 H 97 0820 18:53 96 H 98 20 18:48 104 H 98 08/20 18:43 99 H 97 20 18:38 102 H 97 08/20 18:33 93 H 97 08/20 18:28 100 H 97 0813/20 18:23 95 H 98 0813/20 18:18 100 H 98 0813/20 18:13 100 H 98 0813/20 18:08 93 H 99 0813/20 18:03 102 H 98 0813/20 17:58 99 H 98 08/20 17:53 94 H 98 0813/20 17:48 99 H 99 0813/20 17:43 106 H 98 0813/20 17:31 94 H 97 0813/20 17:26 101 H 97 08/20 17:21 103 H 98 0813/20 17:16 101 H 99 20 17:11 94 H 98 20 17:06 105 H 98 20 17:01 94 H 98 20 16:56 89 99 20 16:51 94 H 98 20 16:46 103 H 98 20 16:41 100 H 98 20 16:36 95 H 98 20 15:31 92 H 99 20 15:26 98 H 99 20 15:21 94 H 100 20 15:16 102 H 98 20 15:11 93 H 99 05/11/20 15:06 98 H 100 05/11/20 15:01 104 H 98 05/11/20 14:56 104 H 98 05/11/20 14:51 106 H 98 05/11/20 14:46 102 H 99 05/11/20 14:41 100 H 99 05/11/20 14:36 105 H 99 05/11/20 14:31 100 H 98 05/11/20 14:26 102 H 98 05/11/20 14:21 102 H 98 05/11/20 14:16 101 H 98 05/11/20 14:11 103 H 98 05/11/20 14:06 104 H 97 05/11/20 14:01 96 H 97 05/11/20 13:56 98 H 98 05/11/20 13:51 98 H 98 20 13:46 109 H 98 05/11/20 13:41 101 H 99 05/11/20 13:36 101 H 100 05/11/20 13:31 109 H 97 05/11/20 13:26 98 H 98 20 13:21 92 H 98 20 12:56 102 H 98 20 12:51 98 H 98 20 12:50 97.8 F 18 05/11/20 12:46 102 H 99 20 12:18 113 H 117/70 Intake and Output 20 14/20 20 22:59 06:59 14:59 Intake Total 7.2 1175.833 Output Total 2200 Balance 7.2 -1024.167 Intake: IV 7.2 95.833 PITOCin/NS 20 UNIT/1000ML 95.833 DRIP 20 units In 1,000 ml @ 125 mls/hr IV DIRECT [facility] Rx#:[id number] PITOCin/NS 30 UNIT/500ML 7.2 30 units In 500 ml @ 1 MILLIUNITS/MIN 1 mls/hr IV TITR IGNACIO Rx#:[id number] Oral 1080 Output: Urine 2200 Void 2200 Other: Total, Intake Amount 480 Total, Output Amount 700 # Voids Void 1 1 # Bowel Movements 1 Estimated Blood Loss 50 - Exam Breasts: Present: normal Abdomen: Present: normal appearance, soft, normal bowel sounds Vulva: both: normal Uterus: Present: normal, firm Extremities: Present: normal - Labs Labs: Abnormal lab results 05/11/20 Range/Units 13:46 MCHC 35 H (30-34) % RDW 15.7 H (13.2-15.2) %
--- NOTE | 2020-05-12 11:18 | Discharge Summary ---
Providers - Providers Date of Admission: 05/11/20 11:48 Date of discharge: 05/13/20 Attending physician: KEYSHA MCKENZIE JR, MD Primary care physician: KEYSHA MCKENZIE JR, MD Hospitalization Reason for admission: active labor Delivery: Episiotomy: none Laceration: none Other procedures: none complications: none Discharge diagnosis: IUP at term delivered baby: female Condition at discharge: Good Disposition: DC-01 TO HOME OR SELFCARE Plan - Discharge Medications Prescriptions: Ibuprofen [Motrin 600 MG tab] 600 mg PO Q6H #30 tablet Vitamin 1 tab PO DAILY 90 Days #90 - Provider Discharge Summary Activity: routine, no sex for 6 weeks, no heavy lifting 4 weeks, no strenuous exercise Diet: routine Instructions: routine Additional instructions: [] Smoking cessation referral if applicable(refer to patient education folder for contact #) [] Refer to [facility]'s [facility] Booklet Call your doctor immediately for: * Fever > 100.5 * Heavy vaginal bleeding ( >1 pad per hour) * Severe persistent headache * Shortness of breath * Reddened, hot, painful area to leg or breast * Drainage or odor from incision. * Keep incision clean and dry at all times and follow doctor's instructions regarding bathing/showering - Follow up plan Follow up: KEYSHA MCKENZIE JR, MD [Primary Care Provider] - 6 Weeks
[2020-05-12 12:21] LABS: Hemoglobin 11.5 gm/dl (10.1-14.3)
[2020-05-12 17:26] VITALS: BP 109/66
== END 2020-05-12 23:45 | disposition home or self-care (01) | DRG 774 ==
LOC: TRG 11:47 → LD 11:47 → TRG 11:48 → OB 05-12 00:32
PROVIDERS: ADMIT Obstetrics & Gynecology; ATTEND Obstetrics & Gynecology
PROC: 10E0XZZ Delivery of Products of Conception, External Approach (ICD-10-PCS; principal; 2020-05-11)
PROC: 10907ZC Drainage of Amniotic Fluid, Therapeutic from Products of Conception, Via Natural or Artificial Opening (ICD-10-PCS; 2020-05-11)
DX: O69.81X0 Labor and delivery complicated by cord around neck, without compression, not applicable or unspecified (principal); O98.52 Other viral diseases complicating childbirth; D57.3 Sickle-cell trait; B00.9 Herpesviral infection, unspecified; O99.214 Obesity complicating childbirth; E66.9 Obesity, unspecified; O99.02 Anemia complicating childbirth; Z3A.38 38 weeks gestation of pregnancy; Z37.0 Single live birth; Z88.2 Allergy status to sulfonamides
CPT/HCPCS: 36415; 85014; 85018; 85027; 86850; 86900; 86901; G0378; J2590; J3010; J7120